=== PATIENT | male | born 1985 | race Two or more races ===

== ENCOUNTER 2019-08-10 15:39 | Emergency (ER) | payer BC, OTHER ==
[~2019-08-10] VITALS: Ht 185.4 cm; Wt 100.0 kg
[2019-08-10] MEDS ORDERED: IBUPROFEN 800MG TABLET PO ONE (16:15)
[2019-08-10 18:04] VITALS: BP 132/65
== END 2019-08-10 18:06 | disposition home or self-care (01) ==
LOC: ER 15:39
DX: S80.12XA Contusion of left lower leg, initial encounter (principal); S80.812A Abrasion, left lower leg, initial encounter; V89.2XXA Person injured in unspecified motor-vehicle accident, traffic, initial encounter; Y93.89 Activity, other specified; Y92.410 Unspecified street and highway as the place of occurrence of the external cause
CPT/HCPCS: 73590; 76881; 99284